=== PATIENT | female | born 1950 | race African-American/Black ===

== ENCOUNTER 2022-04-15 04:50 | Day surgery (SDC) | payer OTHER, BC ==
[~2022-04-15 04:50] MED LIST: LIDOCAINE HCL 1%, 10 MG/ML (20ML VIAL) NR ONE
[2022-04-15 09:59] VITALS: BMI 26.4
[2022-04-15] MEDS ORDERED: ONDANSETRON 4 MG/2 ML VIAL IVPUSH PRN ×2 (14:01→17:43)
[2022-04-15] MEDS ORDERED: LACTATED RINGERS SOLUTION 1,000 ML IV SCH ×2 (14:15→17:45)
[2022-04-15] MEDS ORDERED: ceFAZolin SODIUM 1 GM VIAL IVPB ONE (14:16)
[2022-04-15] MEDS ORDERED: MIDAZOLAM HCL 2 MG/2 ML SINGLE DOSE VIAL ONE (15:36)
[2022-04-15] MEDS ORDERED: LIDOCAINE HCL 1%, 10 MG/ML (20ML VIAL) ONE (15:41)
[2022-04-15] MEDS ORDERED: PROPOFOL 20 ML ONE (16:29)
[2022-04-15] MEDS ORDERED: LIDOCAINE HCL 1%, 10 MG/ML (20ML VIAL) NR ONE ×2 (16:35)
[2022-04-15] MEDS ORDERED: oxyCODONE HCL 5 MG TABLET PO PRN (17:43)
[2022-04-15 19:20] VITALS: RESP 18
[2022-04-15 19:22] VITALS: BP 151/86; PULSE 66; TEMP 97
== END 2022-04-15 19:38 | disposition home or self-care (01) ==
LOC: JASU-SURG 04:50
PROVIDERS: ATTEND Surgery
PROC: 07B60ZX Excision of Left Axillary Lymphatic, Open Approach, Diagnostic (ICD-10-PCS; 2022-04-15)
PROC: C71L1ZZ Planar Nuclear Medicine Imaging of Upper Chest Lymphatics using Technetium 99m (Tc-99m) (ICD-10-PCS; 2022-04-15)
PROC: 0HX5XZZ Transfer Chest Skin, External Approach (ICD-10-PCS; 2022-04-15)
PROC: 0JX60ZB Transfer Chest Subcutaneous Tissue and Fascia with Skin and Subcutaneous Tissue, Open Approach (ICD-10-PCS; 2022-04-15)
PROC: 0HBU0ZZ Excision of Left Breast, Open Approach (ICD-10-PCS; principal; 2022-04-15 13:00)
DX: C50.912 Malignant neoplasm of unspecified site of left female breast (principal)
CPT/HCPCS: 78195-TC; 88307-TC; 88341-TC; 88342-TC; 94760; A9541